=== PATIENT | male | born 1965 | race Caucasian/White ===

== ENCOUNTER 2018-07-01 17:12 | Emergency (ER) | payer BC ==
[2018-07-01 17:28] VITALS: BP 146/98; PULSE 95; TEMP 99.7; BMI 33.7
[2018-07-01] MEDS ORDERED: ACETAMINOPHEN 325 MG TABLET (FP) PO ONE (19:04)
[2018-07-01] MEDS ORDERED: ACETAMINOPHEN 325 MG TABLET (FP) ONE (19:06)
--- NOTE | 2018-07-01 19:55 | PDOC ---
History of Present Illness - General Chief Complaint: Pain Stated Complaint: KNEE PAIN Time Seen by Provider: 07/01/18 18:31 History Source: Patient Exam Limitations: No Limitations - History of Present Illness Associated Symptoms: denies: chest pain, diaphoresis, fever/chills Past History - Travel Close contact w/someone who was outside of country & ill: No - Past Medical History Allergies/Adverse Reactions: Allergies Allergy/AdvReac Type Severity Reaction Status Date / Time Penicillins Allergy Verified 07/01/18 17:28 Home Medications: Ambulatory Orders Naproxen [EC-Naprosyn] 375 mg PO BID 10 Days #20 tablet. 07/01/18 Asthma: Yes COPD: No - Suicide/Smoking/Psychosocial Hx Smoking Status: No Smoking History: Never smoked Number of Cigarettes Smoked Daily: 0 Hx Alcohol Use: No Drug/Substance Use Hx: No Review of Systems - Review of Systems Constitutional: No: Chills, Fever Cardiac (ROS): No: Chest Pain, Lightheadedness, Syncope Musculoskeletal: Yes: Joint Pain. 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 Patient denies LOC or head trauma. Physical examination consistent with swelling in an anterior knee joint. Patient does have a mild limping gait due to pain. He does have full range of motion. X-rays consistent with no fracture, + small joint effusion seen. Knee [place] wrap, Motrin as needed for pain. Rice instructions given. I will refer patient's orthopedic given effusion findings *DC/Admit/Observation/Transfer Diagnosis at time of Disposition: Knee pain, left Qualifiers: Chronicity: acute Qualified Code(s): M25.562 - Pain in left knee - Discharge Dispostion Disposition: HOME Condition at time of disposition: Stable Decision to Admit order: No - Prescriptions Prescriptions: Naproxen [EC-Naprosyn] 375 mg PO BID 10 Days #20 tablet.dr - Referrals Referrals: Ryan Browning MD [Primary Care Provider] - Marifer Pendleton MD [Non Staff, Medical] - - Patient Instructions Printed Discharge Instructions: DI for Knee Effusion Additional Instructions: I discussed the physical exam findings, ancillary test results and final diagnoses with the patient. I answered all of the patient's questions. The patient was satisfied with the care received and felt comfortable with the discharge plan and treatment plan. The patient will call their primary care physician within 24 hours to arrange follow-up and will return to the Emergency Department with any new, persistant or worsening symptoms. - Post Discharge Activity
== END 2018-07-01 19:55 | disposition home or self-care (01) ==
LOC: JERFT 17:12
DX: M25.462 Effusion, left knee (principal); M25.562 Pain in left knee; W18.39XA Other fall on same level, initial encounter; Y93.89 Activity, other specified; Y92.89 Other specified places as the place of occurrence of the external cause; Y99.8 Other external cause status
CPT/HCPCS: 73562-TC-LT-FY; 99281-25

== ENCOUNTER 2023-06-12 11:20 | Emergency (ER) | payer BC, OTHER ==
[2023-06-12 11:26] VITALS: BP 155/83; PULSE 89; RESP 18; TEMP 98.6; BMI 38.2
[2023-06-12] MEDS ORDERED: DEXAMETHASONE SOD PHOSPHATE 10 MG/1 ML VIAL ONE (12:09)
[2023-06-12] MEDS ORDERED: DEXAMETHASONE SOD PHOSPHATE 10 MG/1 ML VIAL IM ONE (12:09)
[2023-06-12] MEDS ORDERED: ALBUTEROL SO4 0.083% IH SOL 2.5 MG/3 ML VIAL.NEB. NEB ONE ×2 (12:09)
== END 2023-06-12 14:26 | disposition home or self-care (01) ==
LOC: JERFT 11:20
PROC: 3E023GC Introduction of Other Therapeutic Substance into Muscle, Percutaneous Approach (ICD-10-PCS; principal; 2023-06-12)
PROC: 3E0F7GC Introduction of Other Therapeutic Substance into Respiratory Tract, Via Natural or Artificial Opening (ICD-10-PCS; 2023-06-12)
DX: R05.9 Cough, unspecified (principal); J45.901 Unspecified asthma with (acute) exacerbation; J20.9 Acute bronchitis, unspecified; Z20.822 Contact with and (suspected) exposure to COVID-19
CPT/HCPCS: 0241U-QW; 71046-TC-FY; 99284-25; J1100